=== PATIENT | female | born 1955 | race Caucasian/White ===

== ENCOUNTER 2019-07-11 08:38 | Day surgery (SDC) | payer OTHER ==
[2019-07-10 18:53] LABS: Absolute Lymphocytes (CBC) 1.8 K/uL (0.7-4.9); Basophils % 0.7 % (0-1.3); Hematocrit 36.6 % (36.0-45.0); Lymphocytes % 30.9 % (15.3-44.8); MPV 7.9 fL (7.6-11.3)
--- OUTSIDE RECORDS SUMMARY | 2019-07-11 08:43 | XMS REPORT ---
:1955 [facility] Address [address] [place] [address] Care Team Providers Name Role Phone Unavailable Unavailable Unavailable Payers Payer Name Policy Type Policy Number Effective Date Expiration Date Problems This patient has no known problems. Allergies, Adverse Reactions, Alerts Allergy Allergy Status Severity Reaction(s) Onset Inactive Treating Comments Name Type Date Date Clinician No Known DA Active U 2019-06 Allergies -28 00:00:0 0 Medications This patient has no known medications. Results Test Description Test Time Test Comments Text Results Atomic Results Result Comments CHEMISTRY 7 PROFILE 2019-07-03 11:40:00 Test Item Value Reference Range Comments SODIUM (test code=NA) 141 mEq/L 135-145 POTASSIUM (test code=K) 5.0 mEq/L 3.5-5.0 CHLORIDE (test code=CL) 103 mEq/L 100-115 CARBON DIOXIDE (test code=CO2) 30 mEq/L 22-31 ANION GAP (test code=GAP) 12.90 10-20 GLUCOSE (test code=GLU) 112 mg/dL 65-110 BLOOD UREA NITROGEN (test code=BUN) 18 mg/dL 7-18 GLOMERULAR FILTRATION RATE (test code=GFR) 45 ml/min >60 CREATININE (test code=CREAT) 1.2 mg/dL 0.5-1.0 CALCIUM (test code=CA) 9.9 mg/dL 8.4-10.2 HGB [id number] 11:13:00 Test Item Value Reference Range Comments HEMOGLOBIN (test code=HGB) 13.4 g/dL 10.7-13.9 HEMATOCRIT (test code=HCT) 41.4 % 32.1-42.1
[2019-07-11] MEDS ORDERED: Ringers Lactate 1,000 ML IV ONE (08:57)
[2019-07-11] MEDS ORDERED: CEFAZOLIN/SWI 1gm 1 GM/10 ML SYR ONE (08:57)
[2019-07-11] MEDS ORDERED: SODIUM BICARB 50 MEQ/50ML VIAL ONE (09:42)
[2019-07-11] MEDS ORDERED: LIDOCAINE 1% MPF 30 ML VIAL ONE (09:42)
[2019-07-11] MEDS ORDERED: NS 0.9% VIAL 20 ML ONE (09:45)
[2019-07-11] MEDS ORDERED: MIDAZOLAM HCL 2 MG/2 ML INJ ONE (10:13)
[2019-07-11] MEDS ORDERED: propofoL 200 MG/20 ML VIAL IV ONE (10:17)
[2019-07-11] MEDS ORDERED: FENTANYL CITR 100 MCG/2 ML ONE (10:17)
[2019-07-11] MEDS ORDERED: LIDOCAINE 1% MPF 5 ML VIAL ONE (10:17)
[2019-07-11] MEDS: HEPARIN 5000 UNIT/ML 1 ML VIAL ONE ×2 (10:36→10:48)
[2019-07-11] MEDS ORDERED: ONDANSETRON 4 MG/2 ML VIAL ONE (10:40)
--- NOTE | 2019-07-11 11:04 | RAD REPORT ---
EXAM DESCRIPTION: RAD - Fluoroscopy <1 Hour - 07/11/2019 10:59 am CLINICAL HISTORY: Venous catheter insertion. PORTCATH COMPARISON: No comparisons FINDINGS: Fluoroscopy time: 0.3 minutes
[2019-07-11 11:23] VITALS: O2SAT 100
--- NOTE | 2019-07-11 11:24 | RAD REPORT ---
[facility]18 [facility] CLINICAL HISTORY: Central venous catheter placement/device placement COMPARISON: none FINDINGS: Central venous catheters been inserted into the proximal to mid superior vena cava. A pneumothorax is not seen. The lungs appear clear of acute infiltrate. The heart is normal size
[2019-07-11] MEDS ORDERED: HYDROCODONE/APAP 7.5/325 MG TAB ONE (11:54)
[2019-07-11 13:57] VITALS: BP 143/71; TEMP 97.2
--- NOTE | 2019-07-11 22:07 | OP ---
Date of Procedure: 07/11/2019 Surgeon: Dinesh Taylor MD Preoperative Diagnosis: Rectal cancer. Postoperative Diagnosis: Rectal cancer. Procedure: Placement of right IJ Port-A-Cath and interpretation of intraoperative fluoroscopy. Estimated Blood Loss: Minimal. Specimen: None. Findings: Normal anatomy. Anesthesia: MAC. Complications: None. Patient tolerated the procedure in stable condition, taken to Recovery in good general condition. Procedure In Detail: Patient was brought to the OR and placed in supine position. MAC anesthesia wa s begun. Patient was prepped and draped usual sterile fashion. Lidocaine 1% infiltrated locally. A n 18-gauge needle was used to access the right IJ vein. Guidewire was passed. Position was confirme d with fluoroscopy. A 3 cm counterincision made on the right anterior chest. Pocket was created. T unneling device used to tunnel the catheter between the 2 wounds. Seldinger technique was used. Tip of the catheter was placed under fluoroscopy in the SVC and the catheter cut to appropriate size, at tached to the Port-A-Cath device. Port-A-Cath device was attached to the subcutaneous tissue with 3- 0 Vicryl and 3-0 chromic used to approximate subcutaneous tissue and close the skin. Ports flushed w ith heparin and packed with heparin with good blood flow. Then, a sterile dressing applied. Patient was awakened and taken to Recovery in good general condition. Chest x-ray has been ordered. If oka y the patient will be discharged to home. Disposition: Home. Condition: Stable. Discharge Instructions: Resume home medications and diet. Activity as tolerated. Remove outer dres sing in 3 days. Shower. Keep the Steri-Strips on all times. Follow up in my office in 2 weeks. Ca mary ellen for appointment. [facility] up [facility]. Tylenol No. 3 one tablet p.o. q.4. p.r.n. pain. /MODL Voice ID: [id number] Report ID: [id number]
== END 2019-07-11 12:20 | disposition home or self-care (01) ==
LOC: OR 08:38
PROVIDERS: ATTEND Surgery
PROC: 0JH60WZ Insertion of Totally Implantable Vascular Access Device into Chest Subcutaneous Tissue and Fascia, Open Approach (ICD-10-PCS; principal; 2019-07-11 10:00)
DX: C20 Malignant neoplasm of rectum (principal); Z80.9 Family history of malignant neoplasm, unspecified; Z82.3 Family history of stroke; Z82.49 Family history of ischemic heart disease and other diseases of the circulatory system
CPT/HCPCS: 85025; 36415; 71045; 36561; J2704; J1644 ×2; J2250; J3010; J0690; J7120; J2405; C1788; 76000

== ENCOUNTER 2020-02-09 08:00 | Day surgery (SDC) | payer OTHER ==
--- OUTSIDE RECORDS SUMMARY | 2020-02-09 08:08 | XMS REPORT | Clinical Summary ---
:1955 Author Organization [facility] Address [address] [place] [address] Care Team Providers Name Role Phone Asked, No Pcp Primary Care Provider Unavailable Allergies No Known Active Allergies Medications Not on file Active Problems Not on file Encounters Date Type Specialty Care Team Description 12/29/2019 Hospital Encounter Radiology Angel Luis Levin Malignant neoplasm of MD Meir rectum (HCC) 12/29/2019 Travel 12/26/2019 Travel 12/19/2019 Travel 12/15/2019 Orders Only General Surgery Alaguguenedeliasamy, Malignant neoplasm of Cecilia Fuller rectum (HC C) (Primary LACTATION SPECIALIST-C Dx) 06/15/2019 Hospital Encounter Radiology Angel Luis Levin MD 06/15/2019 Hospital Encounter Radiology 06/15/2019 Hospital Encounter Radiology Angel Luis Levin MD 06/15/2019 Orders Only General Surgery Alagugurusamy, Colonic leonardo benítez (Primary Cecilia Fuller Dx) LACTATION SPECIALIST-C 06/12/2019 Hospital Encounter Radiology Angel Luis Levin Rectal leonardo Worley MD 06/06/2019 Documentation General Surgery Cecilia Christy, LACTATION SPECIALIST-C after 02/08/2019 Social History Tobacco Use Types Packs/Day Years Used Date Never Assessed Sex Assigned at Date Recorded Not on file Last Filed Vital Signs Vital Sign Reading Time Taken Comments Blood Pressure 148/84 06/12/2019 11:10 AM CLERICAL DENTIST ASSISTANT Pulse 78 06/12/2019 11:10 AM CLERICAL DENTIST ASSISTANT Temperature - - Respiratory Rate 20 06/12/2019 11:10 AM CLERICAL DENTIST ASSISTANT Oxygen Saturation 100% 06/12/2019 11:10 AM CLERICAL DENTIST ASSISTANT Inhaled Oxygen Concentration - - Weight 57.6 kg (127 lb) 06/12/2019 11:10 AM CLERICAL DENTIST ASSISTANT Height - - Body Mass Index - - Plan of Treatment Health Maintenance Due Date Last Done Comments BREAST CANCER SCREENING 2003 COLONOSCOPY SCREENING 2003 SHINGLES VACCINES (#1) 2003 65+ PNEUMOCOCCAL VACCINE (1 of 1 - PPSV23) 2018 INFLUENZA VACCINE 12/02/2019 Procedures Procedure Name Priority Date/Time Associated Comments Diagnosis FL COLON Routine 12/29/2019 11:50 Malignant neoplasm Resul ts for this GASTROGRAFIN WATER AM CDT of rectum (HCC) proced ure are in SOLUBLE ENEMA the results section. MRI PELVIS W WO Routine 06/12/2019 12:50 Rectal mass Results for this CONTRAST PM CLERICAL DENTIST ASSISTANT procedure are i n the results section. POC CREATININE Routine 06/12/2019 11:24 Results f or this AM CLERICAL DENTIST ASSISTANT procedure are i n the results section. ESTIMATED GFR Routine 06/12/2019 11:24 Results fo r this AM CLERICAL DENTIST ASSISTANT procedure are i n the results section. MRI ABD/PELVIC Routine 05/22/2019 6:21 Results f or this EXTERNAL STUDY PM CLERICAL DENTIST ASSISTANT procedure are in the results section. FL EXTERNAL STUDY Routine 05/01/2019 9:21 Result s for this EXAM AM CLERICAL DENTIST ASSISTANT procedure are i n the results section. CT CHEST EXTERNAL Routine 04/28/2019 4:35 Result s for this STUDY PM CLERICAL DENTIST ASSISTANT procedure are i n the results section. after 02/08/2019 Results FL Colon Gastrografin Water Soluble Enema (12/29/2019 11:50 AM CDT) Specimen Narrative Performed At EXAMINATION: FL COLON GASTROGRAFIN PADMINI ER SOLUBLE ENEMA [facility] CLINICAL HISTORY: C20 Malignant neoplasm of rectum, rectal anastomsosis COMPARISON: To previous MRI examinatio n from 06/12/2019 TECHNIQUE: Gastrografin was administered via a rectal tube by gravity under fluoroscopic guidance. The colon was opacified i n a retrograde fashion. Spot radiographs and overhead f ilms were obtained. FLUOROSCOPIC TIME: Fluoroscopic time was less than 1 minute. Dose equals 139 mGy. 18 images were performed . FINDINGS: Slight narrowing at the rectosigmoid anastomosis is pr esent. There is no evidence of extravasation or worrisome c onstriction. IMPRESSION: Unremarkable enema. [id number] Procedure Note Hm Interface, Radiology Results Incoming - 12/29/2019 12:56 PM CDT EXAMINATION: FL COLON GASTROGRAFIN WATER SOLUBLE ENEMA CLINICAL HISTORY: C20 Malignant neoplas m of rectum, rectal anastomsosis COMPARISON: To previous MRI examination from 06/12/2019 TECHNIQUE: Gastrografin was administered via a rectal tube by gravity under fluoroscopic guidance. The colon was opacified in a retrograde fashion. Spot radiographs and overhead films were obtained. FLUOROSCOPIC TIME: Fluoroscopic time wa s less than 1 minute. Dose equals 139 mGy. 18 images were performed. FINDINGS: Slight narrowing at the rectosigmoid salina stomosis is present. There is no evidence of extravasation or worrisome constriction. IMPRESSION: Unremarkable enema. [id number] Performing Organization Address City/State/ZIP Code Phon e Number [facility] [address] [place] [address] MRI Pelvis W Wo Contrast (06/12/2019 12:50 PM CLERICAL DENTIST ASSISTANT) Specimen Narrative Performed At This result has an attachment that is no t available. EXAMINATION: MRI PELVIS W WO CONTRAST [facility] CLINICAL HISTORY: K62.89 Other specifi ed diseases of anus and rectum, rectal mass COMPARISON: None. TECHNIQUE: Multiplanar, multisequence MR I of the pelvis with and without contrast material with a rectal cancer protocol. High-resolution T2 images were obtained. IMPRESSION: The examination is limited. There is mot ion artifact which limits the T2- weighted images. 1. There is a high rectal tumor. The inf erior margin of the tumor is 11.5 cm from the anal verge and 8.5 cm from the top of the anal sphincter complex. The top of the tumor involves the very distal sigmoid and is above the peritoneal reflection. 2. The tumor extends 4 cm in length. I t has an annular morphology. The sigmoid colon proximal to the tumor is slightly prominent measuring 3.3 cm. A component of partial obstruction is not excluded. 3. There is prominent extension of tumor into the mesorectal fat consistent with a MRI stage T3 tumor. This is greatest to the left and posteriorly. Tumor invades up to1.3 cm beyond the muscularis propria. The tumor involves the mesorectal fascia/resection margin posteriorly which is tethered. 4. There are at least 3 suspicious heter ogeneous mesorectal lymph node measuring up to 7 mm (series 9, images 10, 14 and 16) consistent with node positive disease. There is no extra mesorectal adenopathy. 5. A component of extramural vascular in vasion is felt to be present on the left (series 10, image 14). 6. There are some sigmoid diverticula. T he uterus is absent. There is no pelvic fluid. 7. There is a 3 cm T2 hyperintense foc us adjacent to the right hip joint. It probably represents a periarticular ganglion cyst or perilabral cyst. It's incompletely characterized on this focused recta l protocol MRI. MRI of the right hip is recommended for further evaluation and to exclude ot her pathology. There is a 5 mm T2 hypointense focus in the proximal right femur and an 8mm focus in the left iliac bone, likely a small bone islands. [facility][id number] Procedure Note [facility], Radiology Results - 06/12/2019 4:50 PM CLERICAL DENTIST ASSISTANT EXAMINATION: MRI PELVIS W WO CONTRAST CLINICAL HISTORY: K62.89 Other specifie d diseases of anus and rectum, rectal mass COMPARISON: None. TECHNIQUE: Multiplanar, multisequence MR I of the pelvis with and without contrast material with a rectal cancer protocol. High-resolution T2 images were obtained. IMPRESSION: The examination is limited. There is mot ion artifact which limits the T2- weighted images. 1. There is a high rectal tumor. The inf erior margin of the tumor is 11.5 cm from the anal verge and 8.5 cm from the top of the anal sphincter complex. The top of the tumor involves the very distal sigmoid and is above the peritoneal reflection. 2. The tumor extends 4 cm in length. It has an annular morphology. The sigmoid colon proximal to the tumor is slightly prominent measuring 3.3 cm. A component of partial obstruction is not excluded. 3. There is prominent extension of tumor into the mesorectal fat consistent with a MRI stage T3 tumor. This is greatest to the left and posteriorly. Tumor invades up to1.3 cm beyond the muscularis propria. The tumor involves the mesorectal fascia/resection margin posteriorly whic h is tethered. 4. There are at least 3 suspicious heter ogeneous mesorectal lymph node measuring up to 7 mm (series 9, images 10, 14 and 16) consistent with node positive disease. There is no extra mesorectal adenopathy. 5. A component of extramural vascular in vasion is felt to be present on the left (series 10, image 14). 6. There are some sigmoid diverticula. T he uterus is absent. There is no pelvic fluid. 7. There is a 3 cm T2 hyperintense focu s adjacent to the right hip joint. It probably represents a periarticular ganglion cyst or perilabral cyst. It's incompletely characterized on this focused rectal protocol MRI. MRI of the right hip is recommended for further evaluation and to exclude ot her pathology. There is a 5 mm T2 hypointense focus in the proximal right femur and an 8mm focus in the left iliac bone, likely a small bone islands. [facility][id number] Performing Organization Address [facility] Phon e Number [facility] [address] [place] [address] Estimated GFR (06/12/2019 11:24 AM CLERICAL DENTIST ASSISTANT) Estimated GFR 52 (A) mL/min/1.73 [facility] Comment: m2 HOSPITAL Catergory Units Interpretation G1 >=90 Normal or high G2 60-89 Mildly decreased G3a 45-59 Mildly to moderately decreas ed G3b 30-44 Moderately to severely decre ased G4 15-29 Severely decreased G5 <15 Kidney failure The eGFR was calculated using the Chronic Kidney Disea se Epidemiology Collaboration (CKD-EPI) equation. Interpretation is based on recommendations of the National Kidney Foundation-Kidney Disease Outcomes Corey lity Initiative (NKF-KDOQI) published in 2014. Specimen Blood Performing Organization Address [facility] Phon e Number [facility] DEPARTMENT OF PATHOLOGY AND [address] [place] [address] [phone] [address] POC creatinine (06/12/2019 11:24 AM CLERICAL DENTIST ASSISTANT) POC creatinine 1.1 (H) 0.5 - 0.9 [facility] Comment: mg/dl HOSPITAL Model Maker Fiberglass Name: Haim Royal Device ID: [id number] Specimen Blood Performing Organization Address City/[facility] Phon e Number [facility] DEPARTMENT OF PATHOLOGY AND [address] [place] [address] [phone] [address] MRI Abd/Pelvic External Study (05/22/2019 6:21 PM CLERICAL DENTIST ASSISTANT) Specimen Narrative Performed At This exam was not acquired at a [facility] facility and has not been [facility] interpreted by a [facility] Provider. T he exam was imported into our imaging system. Performing Organization Address [facility]/ZIP Code Phon e Number HM [facility] [address] [place] [address] FL External Study Exam (05/01/2019 9:21 AM CLERICAL DENTIST ASSISTANT) Specimen Narrative Performed At This exam was not acquired at a [facility] facility and has not been HM [facility] interpreted by a [facility] Provider. T he exam was imported into our imaging system. Performing Organization Address City/State/ZIP Code Phon e Number HM [facility] [address] [place] [address] CT Chest External Study (04/28/2019 4:35 PM CLERICAL DENTIST ASSISTANT) Specimen Narrative Performed At This exam was not acquired at a [facility] facility and has not been HM [facility] interpreted by a [facility] Provider. T he exam was imported into our imaging system. 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
--- OUTSIDE RECORDS SUMMARY | 2020-02-09 08:10 | XMS REPORT | Continuity of Care Document ---
:1955 Author Organization [facility] t Address [address] [place] [address] Care Team Providers Name Role Phone Asked, Pcp Primary Care Physician Unavailable Meir Levin MD Attending Clinician Alina Poe Attending Clinician [phone] Payers Payer Name Policy Type Policy Effective Date Expiration Date Sour ce Number MEDICAREMEDICARE PART [id number] 2018 Rupert Cabrera AND 00:00:00 [facility] [id number] 2017 [place] [place] MUTUAL OF OMAHAMUTUAL [id number] 2018 Melissa tapia OF 00:00:00 [facility] [id number]/22 18-PresentCommercial Problems Condition Condition Condition Status Onset Resolution Last Treating Co mments Source Name Details Category Date Date Treatment Clinician Date Impacted Impacted Problem Active [facility] Hearing Hearing Problem Active [facility] loss Loss [facility] Allergic Allergic Problem Active [facility] rhinitis [facility]initis [facility] Dizziness Dizziness Problem Active [facility] Allergies, Adverse Reactions, Alerts Allergy Allergy Status Severity Reaction(s) Onset Inactive Treating Comm ents Source Name Type Date Date Clinician No Known DA Active [facility] Allergie 2- Clear s 00:00: [place] [facility] Social History Social Habit Start Date Stop Date Quantity Comments Source Sex Assigned At Melissa tapia [facility] Smoking Status Start Date Stop Date Source Never Smoker [facility] Medications Ordered Filled Start Stop Current Ordering Indication Dosage Frequency Signature Comments Components Source Medication Medication Date Date Medication? Clinician (SIG) Name Name Cozaar 50 Cozaar 50 No 1 Q1D Cozaar 50 [facility] mg tablet mg tablet mg tablet da Take 1 Take 1 Take 1 Medical tablet tablet tablet Group every day every day every day by oral by oral by oral route. route. route. Osphena 60 Osphena 60 No 1 Q1D Osphena 60 [facility] mg tablet mg tablet mg tablet da Take 1 Take 1 Take 1 Medical tablet tablet tablet Group every day every day every day by oral by oral by oral route. route. route. Vital Signs Vital Name Observation Time Observation Value Comments Source BP Diastolic 2018-09-14 00:00:00 95 mm[Hg] [facility] Height 2018-09-14 00:00:00 65 [in_i] [facility] BMI (Body Mass 2018-09-14 00:00:00 22.8 kg/m2 [facility]) Group BP Systolic 2018-09-14 00:00:00 144 mm[Hg] [facility] Body Weight 2018-09-14 00:00:00 137.2 [lb_av] [facility] Systolic blood 2019-06-12 11:10:00 148 mm[Hg] [place] n [facility] pressure Diastolic blood 2019-06-12 11:10:00 84 mm[Hg] Silas on [facility] pressure Heart rate 2019-06-12 11:10:00 78 /min [facility] Respiratory rate 2019-06-12 11:10:00 20 /min [place] [facility] Body weight 2019-06-12 11:10:00 57.607 kg [facility] Oxygen saturation in 2019-06-12 11:10:00 100 /min [facility] Arterial blood by Pulse oximetry Procedures Procedure Date / Time Performing Clinician Source Performed FL COLON GASTROGRAFIN 2019-12-29 11:50:00 Silas Christyist WATER SOLUBLE ENEMA Cecilia Fuller MRI PELVIS W WO CONTRAST 2019-06-12 12:50:00 Angel Luis Levin ESTIMATED GFR 2019-06-12 11:24:00 Angel Luis Levin POC CREATININE 2019-06-12 11:24:00 Angel Luis Levin MRI ABD/PELVIC EXTERNAL 2019-05-22 18:21:00 Angel Luis Levin STUDY FL EXTERNAL STUDY EXAM 2019-05-01 09:21:[address] CHEST EXTERNAL STUDY 2019-04-28 16:35:00 Angel Luis Levin MAMMO, screening, digital, 2018-08-31 00:00:00 [facility] Cholecystectomy [facility] Plan of Care Planned Activity Planned Date Details Comments Source Future Scheduled 2019-12-02 INFLUENZA VACCINE [place] [facility] Test 00:00:00 [code = INFLUENZA VACCINE] Diagnostic Test 2018-09-14 CBC w/ auto diff [facility] Pending 00:00:00 [code = CBC w/ auto Group diff] Diagnostic Test 2018-09-14 CMP, serum or plasma [facility] Pending 00:00:00 [code = CMP, serum or Group plasma] Diagnostic Test 2018-09-14 lipid panel, serum [facility] Pending 00:00:00 [code = lipid panel, Group serum] Diagnostic Test 2018-09-14 pap, LB + HPV [code = [facility] Pending 00:00:00 pap, LB + HPV] Group Diagnostic Test 2018-09-14 CT + NG + TV, DNA, [facility] Pending 00:00:00 urine/swab [code = CT Group + NG + TV, DNA, urine/swab] Diagnostic Test 2018-09-14 HIV (1+2) Ab screen, [facility] Pending 00:00:00 serum [code = HIV Group (1+2) Ab screen, serum] Diagnostic Test 2018-09-14 RPR (rapid plasma [facility] Pending 00:00:00 reagin), serum [code Group = RPR (rapid plasma reagin), serum] Diagnostic Test 2018-09-14 HBsAg (hepatitis B [facility] Pending 00:00:00 surface Ag), serum Group [code = HBsAg (hepatitis B surface Ag), serum] Future Scheduled 2018 65+ PNEUMOCOCCAL [facility] Test 00:00:00 VACCINE (1 of 1 - PPSV23) [code = 65+ PNEUMOCOCCAL VACCINE (1 of 1 - PPSV23)] Future Scheduled 2003 BREAST CANCER [facility] Test 00:00:00 SCREENING [code = BREAST CANCER SCREENING] Future Scheduled 2003 COLONOSCOPY SCREENING ronny [facility] Test 00:00:00 [code = COLONOSCOPY SCREENING] Future Scheduled 2003 SHINGLES VACCINES [place] [facility] Test 00:00:00 (#1) [code = SHINGLES VACCINES (#1)] Encounters Start End Encounter Admission Attending Care Care Encounter Source Date/Time Date/Time Type Type Clinicians Facility Department ID 2019-12-29 2019-12-29 Outpatient [facility], [facility] [id number] [place] 00:00:00 00:00:00 923 Method i 2019-06-15 2019-06-15 Outpatient [facility], [facility] [id number] [place] 00:00:00 00:00:00 705 Method i 2019-06-15 2019-06-15 Outpatient [facility] [id number] [place] 00:00:00 00:00:00 683 Method i 2019-06-15 2019-06-15 Outpatient [facility], [facility] [id number] [place] 00:00:00 00:00:00 650 Method i 2019-06-12 2019-06-12 Outpatient [facility]EV[facility], [facility] [id number] [place] 00:00:00 00:00:00 188 Method i 2018-09-14 2018-09-14 Hui [facility] [place] - [id number] M [place] 00:00:00 00:00:00 Rojas Toussaint, [facility] LU: [address] [place] [address], [facility] [address], [place] [address] , Ph. [phone] Results Test Description Test Time Test Comments Results Result Sourc e Comments SM.INTESTINE 2020-01-04 RESECT NOT TUMOR 19:02:00 --------RUN DATE: 01/05/20 [facility] PAGE 1 RUN TIME: 1216 Specimen Inquiry RUN USER: INTERFACE --------PATIENT: ERNST LUCERO LOC: U #: [id number] AGE/SX: 64/F ROOM: [facility] RE01/01/20REG DR: Angel Luis Levin MD : 51 BED: A DIS: 01/03/20 STATUS: DIS IN TLOC: -------- SPEC #: [id number] RECD: 01/01/20 STATUS: SCOTTIE REBetty #: [id number] FARHANA: 01/01/20- SUBM DR: Angel Luis Levin MD ENTERED: 01/01/20 SP TYPE: SAL YANEZ DR: ORDERED: LEVEL V SURGICA CODES: [id number] - ILEUM, NOS PROCEDURES: LEVEL V SURGICA (Incomplete) TISSUES: ILEUM, NOS - ILEOSTOMY CLINICAL HISTORY 64 year old, rectal cancer (wpd) FINAL DIAGNOSIS Designated "ileostomy", takedown: - ileostomy with mild chronic inflammation and fibrosis CPT code(s): 66902 pk/wpd GROSS DESCRIPTION ANATOMIC SOURCE OF TISSUE (per Requisition): Ileostomy The specimen is received in a formalin-filled container, labeled with the patient's name and designated "ileostomy". The specimen consists of a V-shaped portion of unremarkable intestine measuring 5.7 x 5.0 x 3.0 cm. No mass lesion is noted. The intestine contains a circular portion of deleon-wright unremarkable skin measuring 2.2 cm in diameter. Clinical Medical Transcriptionist sections are submitted in A1 and A2. /wpd 01/01/20 MICROSCOPIC DESCRIPTION The specimen consists of a segment of small intestine containing mild submucosal fibrosis and mild chronic inflammation. No atypia or malignancy is identified. pkcorin/wpd Signed Linda Durbin 01/04/201901 -------- END OF REPORT CHEMISTRY 7 PROFILE 2020-01-03 05:29:00 Test Item Value Reference Range Interpretation Comme nts SODIUM (test code = NA) 137 mEq/L 135-145 N POTASSIUM (test code = K) 3.6 mEq/L 3.5-5.0 N CHLORIDE (test code = CL) 100 mEq/L 100-115 N CARBON DIOXIDE (test code = CO2) 31 mEq/L 22-31 N ANION GAP (test code = GAP) 9.60 10-20 L GLUCOSE (test code = GLU) 104 mg/dL 65-110 N BLOOD UREA NITROGEN (test code = BUN) 11 mg/dL 7-18 N GLOMERULAR FILTRATION RATE (test code = GFR) 45 ml/min >60 L CREATININE (test code = CREAT) 1.2 mg/dL 0.5-1.0 H CALCIUM (test code = CA) 8.3 mg/dL 8.4-10.2 L CBC W/AUTO [id number] 05:17:00 Test Item Value Reference Range Interpretation Comments WHITE BLOOD CELL (test code = WBC) 4.8 K/mm3 6.6-12.1 L RED BLOOD CELL (test code = RBC) 3.75 M/mm3 3.45-5.01 N HEMOGLOBIN (test code = HGB) 11.4 g/dL 10.7-13.9 N HEMATOCRIT (test code = HCT) 36.2 % 32.1-42.1 N MEAN CELL VOLUME (test code = MCV) 97 fL 84.1-94.8 H MEAN CELL HGB (test code = MCH) 30.4 pg 27-35 N MEAN CELL HGB CONCETRATION (test 31.5 gm/dL 32.2-34.1 L code = MCHC) RED CELL DISTRIBUTION WIDTH (test 12.5 % 12.4-16.5 N code = RDW) PLATELET COUNT (test code = PLT) 291 K/mm3 133-385 N MEAN PLATELET VOLUME (test code = 9.3 fl 9.1-12.7 N MPV) NEUTROPHIL % (test code = NT%) 73.2 % 56.5-79.4 N LYMPHOCYTE % (test code = LY%) 13.2 % 14.3-34.3 L MONOCYTE % (test code = MO%) 9.7 % 5.1-10.4 N EOSINOPHIL % (test code = EO%) 3.1 % 0.1-3.0 H BASOPHIL % (test code = BA%) 0.4 % 0.1-1.0 N NEUTROPHIL # (test code = NT#) 3.5 K/mm3 LYMPHOCYTE # (test code = LY#) 0.6 K/mm3 MONOCYTE # (test code = MO#) 0.5 K/mm3 EOSINOPHIL # (test code = EO#) 0.15 K/mm3 BASOPHIL # (test code = BA#) 0.0 K/mm3 RBC MORPHOLOGY REQUIRED (test code NORMAL NORMAL = RBCM) PLATELET MORPHOLOGY REQUIRED (test NORMAL NORMAL code = PLTMR) CHEMISTRY 7 [id number] 04:21:00 Test Item Value Reference Range Interpretation Comments SODIUM (test code = NA) 135 mEq/L 135-145 N POTASSIUM (test code = K) 5.0 mEq/L 3.5-5.0 N CHLORIDE (test code = CL) 102 mEq/L 100-115 N CARBON DIOXIDE (test code = CO2) 27 mEq/L 22-31 N ANION GAP (test code = GAP) 11.10 10-20 N GLUCOSE (test code = GLU) 108 mg/dL 65-110 N BLOOD UREA NITROGEN (test code = 16 mg/dL 7-18 N BUN) GLOMERULAR FILTRATION RATE (test 41 ml/min >60 L code = GFR) CREATININE (test code = CREAT) 1.3 mg/dL 0.5-1.0 H CALCIUM (test code = CA) 8.4 mg/dL 8.4-10.2 N CBC W/AUTO [id number] 04:07:00 Test Item Value Reference Range Interpretation Comments WHITE BLOOD CELL (test code = WBC) 7.8 K/mm3 6.6-12.1 N RED BLOOD CELL (test code = RBC) 3.71 M/mm3 3.45-5.01 N HEMOGLOBIN (test code = HGB) 11.2 g/dL 10.7-13.9 N HEMATOCRIT (test code = HCT) 35.6 % 32.1-42.1 N MEAN CELL VOLUME (test code = MCV) 96 fL 84.1-94.8 H MEAN CELL HGB (test code = MCH) 30.2 pg 27-35 N MEAN CELL HGB CONCETRATION (test 31.5 gm/dL 32.2-34.1 L code = MCHC) RED CELL DISTRIBUTION WIDTH (test 12.3 % 12.4-16.5 L code = RDW) PLATELET COUNT (test code = PLT) 260 K/mm3 133-385 N MEAN PLATELET VOLUME (test code = 9.9 fl 9.1-12.7 N MPV) NEUTROPHIL % (test code = NT%) 83.1 % 56.5-79.4 H LYMPHOCYTE % (test code = LY%) 6.8 % 14.3-34.3 L MONOCYTE % (test code = MO%) 9.5 % 5.1-10.4 N EOSINOPHIL % (test code = EO%) 0.0 % 0.1-3.0 L BASOPHIL % (test code = BA%) 0.3 % 0.1-1.0 N NEUTROPHIL # (test code = NT#) 6.5 K/mm3 LYMPHOCYTE # (test code = LY#) 0.5 K/mm3 MONOCYTE # (test code = MO#) 0.7 K/mm3 EOSINOPHIL # (test code = EO#) 0 K/mm3 BASOPHIL # (test code = BA#) 0.0 K/mm3 RBC MORPHOLOGY REQUIRED (test code NORMAL NORMAL = RBCM) PLATELET MORPHOLOGY REQUIRED (test NORMAL NORMAL code = PLTMR) COVID 19 Asymptomatic IH [id number] 20:18:00 Test Item Value Reference Range Interpretation Comments COVID 19 NEGATIVE NEGATIVE This test has b een Asymptomatic IH AG authorize d only for the (test code = detection ofpro teins from COVNONPUIAG) SARS-CoV-2, not for any other viruses orpathogens. N egative results should be treated as presumptive andconfirmed wi th a molecular assay , if necessary for patientmanageme nt. Negative result s do not rule out COVID- 19 andshould not b e used as the sole basis for treatment orpat ient management deci sions, including infec tion controldecision s. Negative result s should be considered i n thecontext of a patient's recent exposure s, history and thepresence of clinical signs and symptoms consis tent withCOVID-19. T his test has not been FD A cleared or approved; th e test hasbeen authori zed by FDA under an Emerge ncy Use Authorization(E UA) for use by laborato navdeep certified under the CLIA thatmeet the re quirements to perform mode rate, high or waivedcomple xity tests. This reinier t is authorized for use at thePoint of Car e (POC), i.e., in patien t care settingsoperati ng under a CLIA Certificat e of Waiver, Certifi adrian ofCompliance, o r Certificate of Accreditation. This test is only authori zed for the duration of thedeclaration that circumstances e xist justifying theauthorizatio n of emergency use o f in vitro diagnostic test sfor detection and/o r diagnosis of CO VID-19 under Xbzgazr03 4(b)(1) of the Act, 21 U.S .C. 360bbb-3(b)(1), unless theauthorizatio n is terminated or r evoked sooner. COMPREHENSIVE METABOLIC [id number] 17:23:00 Test Item Value Reference Range Interpretation Comments SODIUM (test code = NA) 137 mEq/L 135-145 N POTASSIUM (test code = K) 4.2 mEq/L 3.5-5.0 N CHLORIDE (test code = CL) 101 mEq/L 100-115 N CARBON DIOXIDE (test code = CO2) 30 mEq/L 22-31 N ANION GAP (test code = GAP) 10.50 10-20 N GLUCOSE (test code = GLU) 132 mg/dL 65-110 H BLOOD UREA NITROGEN (test code = 15 mg/dL 7-18 N BUN) GLOMERULAR FILTRATION RATE (test 45 ml/min >60 L code = GFR) CREATININE (test code = CREAT) 1.2 mg/dL 0.5-1.0 H TOTAL PROTEIN (test code = PROT) 7.0 gm/dL 6.3-8.2 N ALBUMIN (test code = ALB) 3.9 gm/dL 3.4-4.8 N CALCIUM (test code = CA) 9.1 mg/dL 8.4-10.2 N BILIRUBIN TOTAL (test code = 0.4 mg/dL 0.2-1.0 N BILT) SGOT/AST (test code = AST) 29 units/L 15-37 N SGPT/ALT (test code = ALT) 36 units/L 12-78 N ALKALINE PHOSPHATASE TOTAL (test 131 units/L 46-116 H code = ALKP) PROTHROMBIN [id number] 17:20:00 Test Item Value Reference Range Interpretation Comments PROTHROMBIN TIME PATIENT (test code 10.4 secs 10.4-12.4 N = PTP) IS PATIENT ON ANTICOAGULANTS ? NINTERNATIONAL NORMAL [id number] 17:20:00 Test Item Value Reference Range Interpretation Comments INTERNATIONAL NORMAL 0.96 The INR is to be used RATIO (test code = INR) only for monitoring oral anticoagulantth erapy. INDICATION INR VALUE 1. Prophylaxis inc luding high risk mike rgery 2.0 - 2.52. Deep venous thr ombosis. Pulmonary em bolism. Atrial fibrilla tion or bioprostheti c heart valves 2.0 - 3.03. Mechanical hear t valves or recurren t systemic emboli sm. 3.0 - 3.5 IS PATIENT ON ANTICOAGULANTS ? NTHROMBOPLASTIN TIME [id number] 17:20:00 Test Item Value Reference Range Interpretation Comments THROMBOPLASTIN TIME PARTIAL (test 30.1 secs 22-38 N code = PTT) IS PATIENT ON ANTICOAGULANTS ? NCBC W/AUTO [id number] 17:11:00 Test Item Value Reference Range Interpretation Comments WHITE BLOOD CELL (test code = WBC) 6.1 K/mm3 6.6-12.1 L RED BLOOD CELL (test code = RBC) 4.18 M/mm3 3.45-5.01 N HEMOGLOBIN (test code = HGB) 12.8 g/dL 10.7-13.9 N HEMATOCRIT (test code = HCT) 40.5 % 32.1-42.1 N MEAN CELL VOLUME (test code = MCV) 97 fL 84.1-94.8 H MEAN CELL HGB (test code = MCH) 30.6 pg 27-35 N MEAN CELL HGB CONCETRATION (test 31.6 gm/dL 32.2-34.1 L code = MCHC) RED CELL DISTRIBUTION WIDTH (test 12.4 % 12.4-16.5 N code = RDW) PLATELET COUNT (test code = PLT) 341 K/mm3 133-385 N MEAN PLATELET VOLUME (test code = 9.6 fl 9.1-12.7 N MPV) NEUTROPHIL % (test code = NT%) 79.2 % 56.5-79.4 N LYMPHOCYTE % (test code = LY%) 10.4 % 14.3-34.3 L MONOCYTE % (test code = MO%) 8.9 % 5.1-10.4 N EOSINOPHIL % (test code = EO%) 0.5 % 0.1-3.0 N BASOPHIL % (test code = BA%) 0.5 % 0.1-1.0 N NEUTROPHIL # (test code = NT#) 4.8 K/mm3 LYMPHOCYTE # (test code = LY#) 0.6 K/mm3 MONOCYTE # (test code = MO#) 0.5 K/mm3 EOSINOPHIL # (test code = EO#) 0.03 K/mm3 BASOPHIL # (test code = BA#) 0.0 K/mm3 RBC MORPHOLOGY REQUIRED (test code NORMAL NORMAL = RBCM) PLATELET MORPHOLOGY REQUIRED (test NORMAL NORMAL code = PLTMR) FL Colon Gastrografin Water Soluble [id number] 12:53:26Hm Interface, Radiology Results 12/29/2019 12:56 PM CDTEXAMINATION: FL COLON GASTROGRAFIN WATER SOLUBLE ENEMACLINICAL HISTORY: C20 Malignant neoplasm of rectum, rectal anastomsosisCOMPARISON: To previous MRI examination from 06/12/2019TECHNIQUE: Gastrografin was administered via a rectal tube by gravity under fluoroscopic guidance. The colon was opacified in a retrograde fashion. Spot radiographs and overhead films were obtained.FLUOROSCOPIC TIME: Fluoroscopic time was less than 1 minute. Dose equals 139 mGy. 18 images were performed.FINDINGS:Slight narrowing at the rectosigmoid anastomosis is present. There is no evidence of extravasation or worrisome constriction.IMPRESSION:Unremarkable enema.[id number] MethodistCOLON SEGMENT RESEC.NOT [id number] 10:50:00 RUN DATE: 11/20/19 [facility] PAGE 1 RUN TIME: 833 Specimen Inquiry RUN USER: INTERFACE PATIENT: ERNST LUCERO LOC: CHRISTI U #: [id number] AGE/SX: 64/F ROOM: [facility] RE11/13/19REG DR: Angel Luis Levin MD : 51 BED: A DIS: 11/15/19 STATUS: DIS IN TLOC: SPEC #: [id number] RECD: 11/13/19-1231 STATUS: SCOTTIE REBetty #: [id number] FARHANA: 11/13/19- SUBM DR: Angel Luis Levin MD ENTERED: 11/13/19 SP TYPE: COLONR OTHR DR: ORDERED: LEVEL V SURGICA/2 CODES: [id number] - RECTUM, NOS PROCEDURES: LEVEL V SURGICA (Incomplete) TISSUES: RECTUM, NOS - RECTUM AND DISTAL DONUT CLINICAL HISTORY 64 year old, rectal cancer (wpd) FINAL DIAGNOSIS Specimen #1 designated "rectal cancer", sigmoidectomy: - moderately-differentiated adenocarcinoma - tumor location: above the anterior peritoneal reflection - tumor size: 1.5 cm - tumor extension: tumor invades throughthe muscularis propria into pericolorectal tissue - margins: all margins are uninvolved by invasive carcinoma - distance of invasive carcinoma from closest margin: 4.0 cm from the distal margin - treatment effect: residual cancer with evident tumor regression consistent with partial response, score 2 - extensive fibrosis and focal calcification - lymphvascular space invasion: present - lymph nodes: 1 of 22 lymph nodes positive for metastatic carcinoma Specimen #2 distal donut, resection: - no tumor identified SUMMARY OF TUMOR FINDINGS: Procedure: - Lower anterior resection Tumor Site: - Rectum Tumor Locality: - Entirely above the anterior peritoneal reflection CONTINUED ON NEXT PAGE - RUN DATE:11/20/19 [facility] PAGE 2 RUN TIME: 833 Specimen Inquiry RUN USER: INTERFACE SPEC #: [id number] PATIENT: ERNST LUCERO #[id number] (Continued) FINAL DIAGNOSIS (Continued) Tumor Size: - 1.5 cm greatest dimension Macroscopic Tumor Perforation: - Not identified Macroscopic Evaluation of Mesorectum: - Complete Histologic Type: - Adenocarcinoma Histologic Grade: - G2: Moderately-differentiated Tumor Extension: - Tumor invades through the muscularis propria into pericolorectal tissue Margins: - All margins are uninvolved by invasive carcinoma Distance of Invasive Carcinoma from Closest Margin: 4.0 cm from distal margin Treatment Effect: - Present: Residual cancer with evident tumor regression but more thansingle cells or rare small groups of cancer cells (partial response, score 2) Lymphvascular Space Invasion: - Present (small vessel) Perineural Invasion: - Not identified Type of Polyp in Which Invasive Carcinoma Arose: - None identified Lymph Nodes: - Number of LN's involved: 1 - Number of LN's examined: 22 Pathologic Stage Classification (pTNM, AJCC 8th Edition) - Primary Tumor: pT3: Tumor invades through the muscularis propria into pericolorectal tissue - Lymph Nodes: pN1a Additional Pathologic Findings: - Hyperplastic polyp (9 cm from the carcinoma) CONTINUED ON NEXT PAGE RUN DATE: 11/20/19 [facility] PAGE 3 RUN TIME: 833 Specimen Inquiry RUN USER: INTERFACE ------ ------SPEC #: [id number] PATIENT: ERNST LUCERO #[id number] (Continued) FINAL DIAGNOSIS (Continued) CPT code(s): 10888, 89636 cds/wpd GROSS DESCRIPTION ANATOMIC SOURCE OFTISSUE (per Requisition): 1. Rectal cancer 2. Distal donut Each specimen is labeled with the patient's name and medical record number. Specimen #1 is designated "rectal cancer" and consists of a 22.0 x 2.8 cm portion of bowel with attached pericolonic fat. The serosa is wright-pinkwith a stricture. The specimen is opened to reveal a 1.5 x 1.2 cm ulcerative lesion that is 4.0 cm from the distal margin, 17.0 cm from the proximal margin, and 7.5 cm from the vasculature margin. The lesion is above the peritoneal reflection. The lesion penetrates into the fat. The lesionis 1.5 cm thick. The mass is 0.1 cm from the circumferential margin. 9.0 cm from the lesion is a0.2 x 0.2 cm white-pink possible polyp. The remaining mucosa is wright-pink with folds. 22 possiblelymph nodes are identified ranging from 0.2 to 0.9 cm. Clinical Medical Transcriptionist sections are submitted as follows: A1 - proximal margin, A2 - distal margin and vasculature margin, A3 and A4 - mass closest to circumferential margin, A4 - mass, A5 - polyp, A6 - uninvolved mucosa, A8 - six intact possible lymph nodes, A9 - six intact possible lymph nodes, A10 - seven intact lymph nodes, A11 - single lymph node, bisected, A12 - single lymph node, bisected. Specimen #2 is designated "distaldonut" and consists of a 2.0 x 2.0 x 1.5 cm wright-pink anular portion of mucosa. The mucosa displays red-brown petechiae. Clinical Medical Transcriptionist sections are submitted labeled B1. jacqueline 11/14/19 - Signed Ricardo Torrez 11/16/19 1050 END OF REPORT CHEMISTRY 7 [id number] 07:00:00 Test Item Value Reference Range Interpretation Comments SODIUM (test code = NA) 139 mEq/L 135-145 N POTASSIUM (test code = K) 4.6 mEq/L 3.5-5.0 N CHLORIDE (test code = CL) 104 mEq/L 100-115 N CARBON DIOXIDE (test code = CO2) 30 mEq/L 22-31 N ANION GAP (test code = GAP) 10.00 10-20 N GLUCOSE (test code = GLU) 103 mg/dL 65-110 N BLOOD UREA NITROGEN (test code = 12 mg/dL 7-18 N BUN) GLOMERULAR FILTRATION RATE (test 55 ml/min >60 L code = GFR) CREATININE (test code = CREAT) 1.0 mg/dL 0.5-1.0 N CALCIUM (test code = CA) 8.8 mg/dL 8.4-10.2 N [id number] 07:00:00 Test Item Value Reference Range Interpretation Comments MAGNESIUM (test code = MAG) 2.0 mg/dL 1.8-2.4 N CBC W/AUTO [id number] 06:32:00 Test Item Value Reference Range Interpretation Comments WHITE BLOOD CELL (test code = WBC) 6.0 K/mm3 6.6-12.1 L RED BLOOD CELL (test code = RBC) 3.14 M/mm3 3.45-5.01 L HEMOGLOBIN (test code = HGB) 10.0 g/dL 10.7-13.9 L HEMATOCRIT (test code = HCT) 31.9 % 32.1-42.1 L MEAN CELL VOLUME (test code = MCV) 102 fL 84.1-94.8 H MEAN CELL HGB (test code = MCH) 31.8 pg 27-35 N MEAN CELL HGB CONCETRATION (test 31.3 gm/dL 32.2-34.1 L code = MCHC) RED CELL DISTRIBUTION WIDTH (test 12.7 % 12.4-16.5 N code = RDW) PLATELET COUNT (test code = PLT) 295 K/mm3 133-385 N MEAN PLATELET VOLUME (test code = 9.5 fl 9.1-12.7 N MPV) NEUTROPHIL % (test code = NT%) 78.5 % 56.5-79.4 N LYMPHOCYTE % (test code = LY%) 11.6 % 14.3-34.3 L MONOCYTE % (test code = MO%) 7.9 % 5.1-10.4 N EOSINOPHIL % (test code = EO%) 1.2 % 0.1-3.0 N BASOPHIL % (test code = BA%) 0.5 % 0.1-1.0 N NEUTROPHIL # (test code = NT#) 4.7 K/mm3 LYMPHOCYTE # (test code = LY#) 0.7 K/mm3 MONOCYTE # (test code = MO#) 0.5 K/mm3 EOSINOPHIL # (test code = EO#) 0.07 K/mm3 BASOPHIL # (test code = BA#) 0.0 K/mm3 RBC MORPHOLOGY REQUIRED (test code NORMAL NORMAL = RBCM) PLATELET MORPHOLOGY REQUIRED (test NORMAL NORMAL code = PLTMR) CHEMISTRY 7 [id number] 06:55:00 Test Item Value Reference Range Interpretation Comments SODIUM (test code = NA) 135 mEq/L 135-145 N POTASSIUM (test code = K) 4.4 mEq/L 3.5-5.0 N CHLORIDE (test code = CL) 100 mEq/L 100-115 N CARBON DIOXIDE (test code = CO2) 26 mEq/L 22-31 N ANION GAP (test code = GAP) 13.40 10-20 N GLUCOSE (test code = GLU) 114 mg/dL 65-110 H BLOOD UREA NITROGEN (test code = 16 mg/dL 7-18 N BUN) GLOMERULAR FILTRATION RATE (test 45 ml/min >60 L code = GFR) CREATININE (test code = CREAT) 1.2 mg/dL 0.5-1.0 H CALCIUM (test code = CA) 8.6 mg/dL 8.4-10.2 N [id number] 06:55:00 Test Item Value Reference Range Interpretation Comments MAGNESIUM (test code = MAG) 1.7 mg/dL 1.8-2.4 L CBC W/AUTO [id number] 06:49:00 Test Item Value Reference Range Interpretation Comments WHITE BLOOD CELL (test code = WBC) 7.1 K/mm3 6.6-12.1 N RED BLOOD CELL (test code = RBC) 3.22 M/mm3 3.45-5.01 L HEMOGLOBIN (test code = HGB) 10.1 g/dL 10.7-13.9 L HEMATOCRIT (test code = HCT) 31.9 % 32.1-42.1 L MEAN CELL VOLUME (test code = MCV) 99 fL 84.1-94.8 H MEAN CELL HGB (test code = MCH) 31.4 pg 27-35 N MEAN CELL HGB CONCETRATION (test 31.7 gm/dL 32.2-34.1 L code = MCHC) RED CELL DISTRIBUTION WIDTH (test 12.7 % 12.4-16.5 N code = RDW) PLATELET COUNT (test code = PLT) 347 K/mm3 133-385 N MEAN PLATELET VOLUME (test code = 9.4 fl 9.1-12.7 N MPV) NEUTROPHIL % (test code = NT%) 81.0 % 56.5-79.4 H LYMPHOCYTE % (test code = LY%) 7.9 % 14.3-34.3 L MONOCYTE % (test code = MO%) 10.6 % 5.1-10.4 H EOSINOPHIL % (test code = EO%) 0.0 % 0.1-3.0 L BASOPHIL % (test code = BA%) 0.1 % 0.1-1.0 N NEUTROPHIL # (test code = NT#) 5.7 K/mm3 LYMPHOCYTE # (test code = LY#) 0.6 K/mm3 MONOCYTE # (test code = MO#) 0.8 K/mm3 EOSINOPHIL # (test code = EO#) 0 K/mm3 BASOPHIL # (test code = BA#) 0.0 K/mm3 RBC MORPHOLOGY REQUIRED (test code NORMAL NORMAL = RBCM) PLATELET MORPHOLOGY REQUIRED (test NORMAL NORMAL code = PLTMR) Novel Coronavirus 2019 [id number] 19:15:00 Test Item Value Reference Range Interpretation Comments Novel Coronavirus 2019 Inhouse (test Negative Negative code = COVNONPUI) Novel Coronavirus 2019 [id number] 19:15:00 Test Item Value Reference Range Interpretation Comments Novel Coronavirus 2019 Inhouse (test Negative Negative code = COVNONPUI) CHEMISTRY 7 [id number] 15:33:00 Test Item Value Reference Range Interpretation Comments SODIUM (test code = NA) 140 mEq/L 135-145 N POTASSIUM (test code = K) 4.2 mEq/L 3.5-5.0 N CHLORIDE (test code = CL) 101 mEq/L 100-115 N CARBON DIOXIDE (test code = CO2) 29 mEq/L 22-31 N ANION GAP (test code = GAP) 14.20 10-20 N GLUCOSE (test code = GLU) 94 mg/dL 65-110 N BLOOD UREA NITROGEN (test code = 18 mg/dL 7-18 N BUN) GLOMERULAR FILTRATION RATE (test 50 ml/min >60 L code = GFR) CREATININE (test code = CREAT) 1.1 mg/dL 0.5-1.0 H CALCIUM (test code = CA) 9.3 mg/dL 8.4-10.2 N HGB [id number] 15:13:00 Test Item Value Reference Range Interpretation Comments HEMOGLOBIN (test code = HGB) 12.2 g/dL 10.7-13.9 N HEMATOCRIT (test code = HCT) 39.3 % 32.1-42.1 N COLON, [id number] 16:46:00 RUN DATE: 07/14/19 [facility] PAGE 1 RUN TIME: 1014 Specimen Inquiry RUN USER: INTERFACE PATIENT: ERNST LUCERO LOC: [facility] U #: [id number] AGE/SX: 64/F ROOM: RE07/03/19REG DR: Jarvis Scott MD : 51 BED: DIS: STATUS: [facility] [place] TLOC: SPEC #: [id number] RECD: 07/03/19 STATUS: SCOTTIE JACOBO #: [id number] FARHANA: 07/03/19- SUBM DR: Jarvis Scott MD ENTERED: 07/03/19 SP TYPE: COLONBX OTHR DR: ORDERED: LEVEL IV, FROZEN SECTION CODES: [id number] - RECTUM, NOS PROCEDURES: LEVEL IV (Incomplete) FROZEN SECTION (Incomplete) TISSUES: RECTUM, NOS - RECTAL MASS CLINICAL HISTORY 64year old, rectal mass (wpd) FINAL DIAGNOSIS Rectal mass, biopsy: - 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 The [facility] is [facility] RESULTS: MSI - Stable (DEON) COMMENTS: This tumor showed no microsatellite instability by PCR. It is unlikely that this patient has Osman syndrome (hereditary non-polyposis colorectal cancer, HNPCC). However, 5% of patients with HNPCC have DEON colorectal adenocarcinomas. Microsatellite stability in this neoplasm is associated with thepresence of the main mismatch repair proteins (MLH1, MSH2, MSH6 and PMS2). I acknowledge the above findings. CPT code(s): 23463, 15865, 22297 cds/wpd 07/04/19 CONTINUED ON NEXT PAGE RUN DATE: 07/14/19 [facility] PAGE 2 RUN TIME: 1014 Specimen Inquiry RUN USER: INTERFACE SPEC #: [id number] PATIENT: ERNST LUCERO #[id number] (Continued) GROSS DESCRIPTION ANATOMIC SOURCE OF TISSUE (per Requisition): Rectal mass (frozen) The specimen received without fixative in a container, labeled with the patient's name is designated "rectal mass". The specimen consists of a 1.5 x 0.8 x 0.3 cm aggregate of multiple wright-red, soft and slightly nodular tissues. Entirely submitted as FS1 and FS2 - frozen section diagnosis. christiano/wplore 07/03/19 MICROSCOPIC DESCRIPTION There is a moderately-differentiated adenocarcinoma present in the submucosa of the specimen. No direct involvement of the mucosa is identified in these tissue fragments. nevaeh/wpd 07/04/19 Signed Ricardo Torrez 07/04/19 1646 END OF REPORT CHEMISTRY 7 [id number] 11:40:00 Test Item Value Reference Range Interpretation Comments SODIUM (test code = NA) 141 mEq/L 135-145 N POTASSIUM (test code = K) 5.0 mEq/L 3.5-5.0 N CHLORIDE (test code = CL) 103 mEq/L 100-115 N CARBON DIOXIDE (test code = CO2) 30 mEq/L 22-31 N ANION GAP (test code = GAP) 12.90 10-20 N GLUCOSE (test code = GLU) 112 mg/dL 65-110 H BLOOD UREA NITROGEN (test code = 18 mg/dL 7-18 N BUN) GLOMERULAR FILTRATION RATE (test 45 ml/min >60 L code = GFR) CREATININE (test code = CREAT) 1.2 mg/dL 0.5-1.0 H CALCIUM (test code = CA) 9.9 mg/dL 8.4-10.2 N HGB [id number] 11:13:00 Test Item Value Reference Range Interpretation Comments HEMOGLOBIN (test code = HGB) 13.4 g/dL 10.7-13.9 N HEMATOCRIT (test code = HCT) 41.4 % 32.1-42.[address] Chest External [id number] 07:39:16This exam was not acquired at a [facility] facility and has not been interpreted by a [facility] Provider. The exam was imported into our imaging system.[facility] Abd/Pelvic External [id number] 07:38:41This exam was not acquired at a [facility] facility and has not been interpreted by a [facility] Provider. The exam was imported into our imaging system.[facility] External Study Exam 2019-06-15 07:37:58This exam was not acquired at a [facility] facility and has not been interpreted by a [facility] Provider. The exam was imported into our imaging system.[facility] Pelvis W Wo [id number] 16:46:57Hm Interface, Radiology Results 06/12/2019 4:50 PM CSTEXAMINATION: MRI PELVIS W WO CONTRASTCLINICAL HISTORY: K62.89 Other specified diseases of anus and rectum, rectal massCOMPARISON: None.TECHNIQUE: Multiplanar, multisequence MRI of the pelvis with and without contrast material with a rectal cancer protocol. High-resolution T2 images were obtained.IMPRESSION:The examination is limited. There is motion artifact which limits the T2-weighted images.1. There is a high rectal tumor. The inferior margin of the tumor is 11.5 cm from the anal verge and 8.5 cm from the top of the anal sphincter complex. The top of the tumor involves the very distal sigmoid and is above the peritoneal reflection.2. The tumor extends 4 cm in length. It has an annular morphology. The sigmoid colon proximal to the tumor is slightly prominent measuring 3.3 cm. A component of partial obstruction is not excluded.3. There is prominent extension of tumor into the mesorectal fat consistent with a MRI stage T3 tumor. This is greatest to the left and posteriorly. Tumor invades up to1.3 cm beyond the muscularis propria. The tumor involves the mesorectal fascia/resection margin posteriorly which is tethered.4. There are at least 3 suspicious heterogeneous mesorectal lymph node measuring up to 7 mm (series 9, images 10, 14 and 16) consistent with node positive disease. There is no extra mesorectal adenopathy.5. A component of extramural vascular invasion is felt to be present on the left (series 10, image 14).6. There are some sigmoid diverticula. The uterus is absent. There is no pelvic fluid. 7. There is a 3 cm T2 hyperintense focus adjacent to the right hip joint. It probably represents a periarticular ganglion cyst or perilabral cyst. It's incompletely characterized on this focused rectal protocol MRI. MRI of the right hip is recommended for further evaluation and to exclude other pathology. There is a 5mm T2 hypointense focus in the proximal right femur and an 8mm focus in the left iliac bone, likely a small bone islands.[id number] [facility] [id number] 11:25:56 Test Item Value Reference Range Interpretation Comments POC creatinine (test 1.1 mg/dl 0.5-0.9 H Operato r Name: code = 71073-6) Haim Portillo ID: [id number] Lab Interpretation Abnormal (test code = 18961-8) [facility] [id number] 11:25:56 Test Item Value Reference Range Interpretation Comments Estimated GFR (test 52 mL/min/1.73 m2 A Caterg ory Units code = 65093-2) Interpretati onG1 >=90 Dara l or highG2 60-89 Mildly decrease dG3a 45-59 Mil dly to moderately decr judnqJ2b 30-44 Moderately to s everely decreasedG4 15-29 Severe ly decreasedG5 <15 Kidney sang lureThe eGFR was calcul ated using the Chron Kidney Disease Epidemiology Collaboration ( CKD-EPI) equation. Interpretation is based on recommendati ons of the National [facility]-Kidn ey Disease Outcome s Quality Initiat mone (NKF-KDOQI) pub lished in 2013. Lab Interpretation Abnormal (test code = 96280-3) [facility]atitis B virus surface Ag [Presence] in [id number] 09:30:00 Test Item Value Reference Range Interpretation Comments .hepatitis B surface antigen (test negative negative code = .hepatitis B surface antigen) [facility] [Presence] in Serum by [id number] 09:26:00 Test Item Value Reference Range Interpretation Comments Reagin Ab [Presence] in Serum by nonreactive nonreactive RPR (test code = 73967-7) [facility] CenterHIV [facility]+2 Ab [Presence] in [id number] 09:26:00HIV P24 AgHIV-1/2 [facility]MataNorth [facility]
[2020-02-09] MEDS ORDERED: CEFAZOLIN/SWI 1gm 1 GM/10 ML SYR ONE (08:37)
[2020-02-09] MEDS ORDERED: Ringers Lactate 1,000 ML IV ONE (08:37)
[2020-02-09 08:55] VITALS: O2SAT 100
[2020-02-09] MEDS ORDERED: MIDAZOLAM HCL 2 MG/2 ML INJ ONE ×2 (09:11→09:19)
[2020-02-09] MEDS ORDERED: FENTANYL CITR 100 MCG/2 ML ONE (09:11)
[2020-02-09] MEDS ORDERED: propofoL 200 MG/20 ML VIAL IV ONE (09:11)
[2020-02-09] MEDS ORDERED: LIDOCAINE 1% MPF 5 ML VIAL ONE (09:12)
[2020-02-09] MEDS ORDERED: KETOROLAC 30 MG/ML INJ ONE ×2 (09:21)
--- NOTE | 2020-02-09 10:03 | OP ---
Date of Procedure: 02/09/2020 Surgeon: Dinesh Taylor MD Test Case Developer: None. Preoperative Diagnosis: Rectal cancer and status post Port-A-Cath placement. Postoperative Diagnosis: Rectal cancer and status post Port-A-Cath placement. Procedure: Removal of right chest Port-A-Cath. Estimated Blood Loss: Minimal. Specimen: Port-A-Cath device. Findings: As above. Anesthesia: MAC. Complications: None. Disposition: The patient tolerated the procedure in stable condition and taken to the Recovery in go od general condition. Description Of Procedure: The patient was brought to the OR and placed in the supine position. MAC anesthesia was begun. The patient was prepped and draped in usual sterile fashion. Marcaine 0.5% wa s infiltrated locally and then 15 blade was used to make a 3 cm incision over the right chest. Subcu tissue was divided. Port device was identified and freed from the surrounding tissue with sharp and blunt dissection, removed and sent to Pathology for identification. Wound was irrigated. Bleeding was controlled cautery and then 3-0 chromic was used to approximate the subcutaneous tissue and close the skin. Sterile dressing was applied. Patient was awakened and taken to Recovery in good general condition. Discharge Note: The patient will go to Day Surgery and home when stable. Disposition: Home. Condition: Stable. Discharge Instructions: Resume home medications and diet. Activity as tolerated. No heavy lifting. Remove outer dressing in 2 days. Shower. Keep Steri-Strips on at all times. Follow up in my offi ce in 2 weeks, call for appointment. Tylenol No. 3 one tablet p.o. q.4 p.r.n. pain. /MODL Voice ID: [id number] Report ID: [id number]
[2020-02-09 11:39] VITALS: BP 142/68; TEMP 96.8
== END 2020-02-09 10:17 | disposition home or self-care (01) ==
LOC: OR 08:00
PROVIDERS: ATTEND Surgery
PROC: 0JPT0WZ Removal of Totally Implantable Vascular Access Device from Trunk Subcutaneous Tissue and Fascia, Open Approach (ICD-10-PCS; principal; 2020-02-09 09:00)
DX: Z45.2 Encounter for adjustment and management of vascular access device (principal); C20 Malignant neoplasm of rectum; Z20.828 Contact with and (suspected) exposure to other viral communicable diseases
CPT/HCPCS: 88300; 36590; U0002; J2704; J2250 ×2; J3010; J0690; J7120